=== PATIENT | male | born 1965 | race Caucasian/White ===

== ENCOUNTER → 2016-03-16 | Outpatient (CLI) | payer OTHER | END | disposition home or self-care (01) | LOC: PCVCIMAG 13:27 | PROVIDERS: ATTEND Internal Medicine | DX: I42.8 Other cardiomyopathies (principal); I07.1 Rheumatic tricuspid insufficiency; R06.00 Dyspnea, unspecified; R00.2 Palpitations | CPT/HCPCS: 93306 ==

== ENCOUNTER → 2018-11-10 | Outpatient (CLI) | payer OTHER ==
[~2018-11-10] MED LIST: PERFLUTREN PROTEIN-A MICROSPHR 0.22 MG/ML 3 ML VIAL. IV ONE
--- NOTE | 2018-11-14 07:23 | PCVCIMAG ---
APPROVED REPORT Study performed: 11/10/2018 07:46:52 EXAM: Comprehensive 2D, Doppler, and color-flow Echocardiogram Patient Location: Echo lab Status: routine BSA: 2.22 HR: 64 bpmBP: 130/84 mmHg Rhythm: NSR Other Information Study Quality: Adequate Risk Factors: Cardiac Risk Factors: HTN Indications apical hypertrophic cardiomyopathy Echo Enhancing Agent Indication: Endocardial border delineation Agent(s) / Amount(s) Used: Optison 4 cc 2D Dimensions IVSd: 13.39 (7-11mm) LVDd: 53.16 mm PWd: 12.57 (7-11mm) LVDs: 38.04 (25-40mm) Left Atrium: 47.90 (27-40mm) Aortic Root: 35.00 mm LV Single Plane 4CH: 50.88 % LV Single Plane 2CH: 58.28 % Biplane EF: 54.5 % Volumes Left Atrial Volume (Systole) Single Plane 4CH: 78.29 mLSingle Plane 2CH: 93.69 mL LA ESV Index: 39.00 mL/m2 Aortic Valve AoV Peak Sumeet.: 1.43 m/s AO Peak Gr.: 8.20 mmHgLVOT Max P.46 mmHg LVOT Max V: 1.06 m/s Mitral Valve E/A Ratio: 1.4 MV Decel. Time: 261.43 ms MV E Max Sumeet.: 0.59 m/s MV A Sumeet.: 0.41 m/s IVRT: 134.95 ms Pulmonary Valve PV Peak Sumeet.: 1.27 m/sPV Peak Gr.: 6.47 mmHg Pulmonary Vein P Vein S: 0.36 m/sP Vein A: 0.36 m/s P Vein D: 0.56 m/sP Vein A Dur.: 141.9 msec P Vein S/D Ratio: 0.64 Tricuspid Valve TR Peak Sumeet.: 2.79 m/s TR Peak Gr.: 31.04 mmHg Left Ventricle The left ventricle is normal size. There is normal LV segmental wall motion. Moderate to severe apical left ventricular hypertrophy. Left ventricular systolic function is normal. The left ventricular ejection fraction is within the normal range. LVEF is 60-65%. Grade II - pseudonormal filling dynamics. Right Ventricle The right ventricle is normal size. The right ventricular systolic function is normal. Atria Left atrium is mildly dilated. The right atrium size is normal. Aortic Valve The aortic valve is normal in structure. No aortic regurgitation is present. There is no aortic valvular stenosis. Mitral Valve The mitral valve is normal in structure. Mild mitral regurgitation. No evidence of mitral valve stenosis. Tricuspid Valve The tricuspid valve is normal in structure. Mild tricuspid regurgitation with PAP of 38 mmHg. Pulmonic Valve The pulmonary valve is normal in structure. There is no pulmonic valvular regurgitation. Great Vessels The aortic root is normal in size. IVC is normal in size and collapses >50% with inspiration. Pericardium There is no pericardial effusion. There is no pleural effusion. <Conclusion> Left ventricular systolic function is normal. Apical hypertrophic cardiomyopathy There is normal LV segmental wall motion. EF 65% Severe apical left ventricular hypertrophy without aneurysm LVEF is 60-65%. Moderate diastolic dysfunction The aortic valve is normal in structure. No aortic regurgitation or stenosis The mitral valve is normal in structure. Mild mitral regurgitation. Mild tricuspid regurgitation with PAP of 38 mmHg. There is no pericardial effusion.
== END | disposition home or self-care (01) ==
LOC: PCVCIMAG 08:16
PROVIDERS: ATTEND Internal Medicine
DX: I08.1 Rheumatic disorders of both mitral and tricuspid valves (principal); I11.9 Hypertensive heart disease without heart failure; R94.31 Abnormal electrocardiogram [ECG] [EKG]; E78.5 Hyperlipidemia, unspecified; G47.33 Obstructive sleep apnea (adult) (pediatric); Z99.89 Dependence on other enabling machines and devices; Z87.891 Personal history of nicotine dependence
CPT/HCPCS: C8929; Q9956